=== PATIENT | female | born 1945 | race Caucasian/White ===

== ENCOUNTER → 2017-06-21 | Outpatient (CLI) | payer OTHER | LOC: RAD 07:36 → SPEECH 13:37 → RAD 13:37 | DX: K21.9 Gastro-esophageal reflux disease without esophagitis (principal); R13.12 Dysphagia, oropharyngeal phase ==

== ENCOUNTER → 2017-06-22 | Outpatient (CLI) | payer OTHER | LOC: RAD 09:40 | DX: K21.9 Gastro-esophageal reflux disease without esophagitis (principal) ==

== ENCOUNTER → 2017-06-25 | Outpatient (CLI) | payer OTHER | LOC: CAT | DX: J44.9 Chronic obstructive pulmonary disease, unspecified (principal); I51.7 Cardiomegaly; K21.9 Gastro-esophageal reflux disease without esophagitis ==

== ENCOUNTER → 2018-05-12 | Outpatient (CLI) | payer OTHER ==
[~2018-05-12] VITALS: Ht 167.6 cm; Wt 85.3 kg
[~2018-05-12] MED LIST: MAGNESIUM500 MG PO; POTASSIUM GLUC500 MG PO; TRAMADOL 50 MG50 MG PO; TURMERIC500 M2 PO; VITAMIN D50000 UNIT PO; VITAMINC500 PO
--- NOTE | 2018-05-13 17:49 | P ---
[facility] [place] [address] PROCEDURE REPORT Name: SHARIF ALEJANDRA Room #: REG [facility].#: [id number] Admission: 05/12/18 Attend Phys: Robert Egan MD Discharge: Date of : 49 Report #: [id number] THIS REPORT FOR: //name// CC: Robert Hernandez MD BRIEF HISTORY: The patient is a 72-year-old woman with recurrent solid food dysphagia. She also has intermittent bouts of right upper quadrant pain. There is also prior history of peptic ulcer disease. One or two years ago, she was negative for H. pylori. PREOPERATIVE DIAGNOSES: Dysphagia and abdominal pain and history of ulcer disease. POSTOPERATIVE DIAGNOSES: 1. Antral gastritis with a single small antral erosion. 2. Dysphagia. MEDICATIONS: Deep sedation with propofol per anesthesia. SPECIMEN: None. ESTIMATED BLOOD LOSS: None. PROCEDURE: EGD and Brooke dilation. FINDINGS: Prior to propofol sedation, procedure of upper endoscopy and dilation was reviewed with the patient as well as potential risks and its complications. She indicates she understands and desires to proceed. DESCRIPTION OF PROCEDURE: With the patient in the left lateral decubitus position, the Olympus video endoscope was inserted in the cervical esophagus under direct vision without difficulty. Examination of this organ through its entire length revealed normal esophageal mucosa down the squamocolumnar junction. Squamocolumnar junction was inspected and noted to be unremarkable. No evidence of ulcers, erosions or Garcia mucosa. A stricture was not seen. A significant hiatus hernia was not seen. The scope was advanced in the stomach, was examined on end view as well as retroflexed views. She does have prepyloric antral gastritis and a single nonbleeding erosion was seen. No ulcers were seen. Upon retroflexion, the mucosa in the proximal stomach was unremarkable. No masses were seen in the cardia. The pylorus was normal. Duodenal bulb was normal and the post-coronary sweep was normal. At that point, the scope was slowly withdrawn and careful circumferential views confirmed the above findings. The patient tolerated the procedure well. Following procedure, she was dilated with passage of a 50-[place] [facility] [address] [place] [address] PROCEDURE REPORT Name: SHARIF ALEJANDRA Room #: REG [facility].R.#: [id number] Admission: 05/12/18 Attend Phys: Robert Egan MD Discharge: Date of : 49 Report #: [id number] dilator. The dilator passed without difficulty. The patient tolerated the procedure well. CONDITION OF THE PATIENT UPON DISCHARGE: Following procedure, the patient was drowsy and arousable. She will be discharged home when fully ambulatory. INSTRUCTIONS TO THE PATIENT AND FAMILY AT THE TIME OF DISCHARGE: She has had benefit from dilation in the past and dilation can be repeated on an as needed basis as long as she maintains benefit. If dysphagia continues to be a problem, further evaluation such as motility studies either a barium or manometric may be indicated. She does have intermittent bouts of right upper quadrant pain. Recent ultrasound did reveal dilated ducts, but liver function studies were unremarkable. The patient is to have an MRCP and potentially, PIPIDA scan as well. We will have the patient return for followup in the office. <ELECTRONICALLY SIGNED> By: Robert Egan MD 05/13/18 1749 [id number] [id number] Robert Egan MD /nt
== END | disposition home or self-care (01) ==
LOC: GI 06:14
DX: K29.60 Other gastritis without bleeding (principal); K21.9 Gastro-esophageal reflux disease without esophagitis; E78.00 Pure hypercholesterolemia, unspecified; Z87.19 Personal history of other diseases of the digestive system; Z87.891 Personal history of nicotine dependence; Z98.890 Other specified postprocedural states; Z90.710 Acquired absence of both cervix and uterus; Z79.899 Other long term (current) drug therapy
CPT/HCPCS: 62110; 62900

== ENCOUNTER → 2018-05-24 | Outpatient (CLI) | payer OTHER | LOC: MRI 06:54 | DX: K83.1 Obstruction of bile duct (principal); K82.8 Other specified diseases of gallbladder ==

== ENCOUNTER → 2018-06-06 | Outpatient (CLI) | payer OTHER | LOC: NUC 08:42 | DX: R94.5 Abnormal results of liver function studies (principal); R93.5 Abnormal findings on diagnostic imaging of other abdominal regions, including retroperitoneum; R10.9 Unspecified abdominal pain ==

== ENCOUNTER → 2018-07-12 | Outpatient (CLI) | payer OTHER | LOC: CAT 15:04 | DX: Z13.6 Encounter for screening for cardiovascular disorders (principal); E78.00 Pure hypercholesterolemia, unspecified; I25.10 Atherosclerotic heart disease of native coronary artery without angina pectoris ==

== ENCOUNTER → 2018-10-21 | Outpatient (CLI) | payer OTHER ==
[~2018-10-21] VITALS: Ht 165.1 cm; Wt 86.2 kg
[~2018-10-21] MED LIST changes: +CRESTOR10 MG PO; +EDARBI40 MG PO
--- NOTE | ~2018-10-21 | P ---
[facility] [place] [address] PROCEDURE REPORT Name: SHARIF ALEJANDRA Room #: REG [facility]#: [id number] Admission: 10/21/18 ������������������ Attend Phys: Robert Egan MD Discharge: ������������������ Date of : 49 Report #: [id number] THIS REPORT FOR: //name// CC: Robert Hernandez MD DATE OF SERVICE: 10/21/2018 OUTPATIENT UPPER ENDOSCOPY REPORT BRIEF HISTORY: The patient is a 72-year-old woman well known to me with problems with dysphagia. She also describes choking episodes. She had previous evaluation more than 10 years ago at [facility]. She has undergone recent evaluation with an esophageal manometry which revealed some incomplete peristalsis with swallows and also upper normal range of relaxation to lower esophageal sphincter, but without definite evidence of achalasia. She presents for repeat endoscopy and dilation. She reports she has had benefit from dilation in the past. PREOPERATIVE DIAGNOSIS: Recurrent dysphagia. POSTOPERATIVE DIAGNOSES: 1. Gastritis with scattered erosions. 2. Dysphagia. MEDICATIONS: Deep sedation with propofol for anesthesia. SPECIMEN: Biopsies of gastritis. ESTIMATED BLOOD LOSS: 3 mL. PROCEDURE: EGD with biopsy, Brooke dilation. FINDINGS: Prior to propofol sedation, procedure of upper endoscopy and dilation was discussed with the patient as well as potential risks and its complications. She indicates she understands and desires to proceed. DESCRIPTION OF PROCEDURE: With the patient in left lateral decubitus position, the Olympus video endoscope was inserted in cervical esophagus under direct vision without difficulty. Examination of this organ through its entire length revealed normal esophageal mucosa throughout the entire esophagus. No strictures or masses were seen. The squamocolumnar junction was inspected and noted to be normal. A hiatus hernia was not seen. I did not see a definite stricture or ring. The scope passed easily through the GE junction into the stomach. Examination of the stomach on end view as well as retroflexed views [facility] [address] [place] [address] PROCEDURE REPORT Name: SHARIF ALEJANDRA Room #: [facility].#: [id number] Admission: 10/21/18 ������������������ Attend Phys: Robert Egan MD Discharge: ������������������ Date of : 49 Report #: [id number] revealed intact mucosa. In the body, there were linear striations consistent with gastritis without ulcers or erosions. Upon retroflexion, no mass lesions were seen in the cardia. Examination of the antrum revealed scattered erosions. There is no evidence of bleeding, ulcers or mass lesions. The pylorus was widely patent. The duodenal bulb and postbulbar duodenal sweep was noted to be unremarkable. I could not clearly see the papilla today. She does have a history of dilated bile ducts. There is no endoscopic evidence of mass lesions in the second portion of duodenum on examination today. At that point, the scope was slowly withdrawn and careful circumferential views confirmed the above findings. The patient tolerated the procedure well. Following procedure, she was dilated with passage of a 60-[place] Brooke dilator. There was no resistance to passage of the dilator. The patient tolerated the procedure well. CONDITION OF THE PATIENT UPON DISCHARGE: Following procedure, the patient drowsy. She will be discharged home when fully ambulatory. INSTRUCTIONS TO THE PATIENT AND FAMILY AT THE TIME OF DISCHARGE: We will have the patient return to see me in followup in the office. If she has good benefit from this procedure, may be repeated on an as needed basis. She does describe some choking with swallowing and will also have her obtain a video swallow for further evaluation of these choking episodes. It is noted the patient was told in the past she had a mass in the left supraclavicular area. None is palpable on exam today. She did have a CT of the chest done here at [facility] in 06/2017. That study revealed a prominent left lobe of the thyroid, but not a definite mass. We will discuss further with the patient. I presume this was evaluated previously but if not, further evaluation of the thyroid may be indicated. If she continues to have dysphagia and particularly if she does not respond to esophageal dilation as noted, we may consider a trial of Botox for possible early achalasia, although definite achalasia has not been identified. ��������������������������������������������� ���������������������������������������� By: ��������������������������������������������� 0900 1057 Robert Egan MD /nt
--- NOTE | 2018-10-24 16:06 | PATH ---
[facility] [address] [place] [address] PATHOLOGY RPT PROCEDURE Name: YI ALEJANDRA Alexis Room #: REG [facility].#: [id number] ������������������ Admission: 10/21/18 ������������������ Date of : 49 Discharge: Report #: [id number] Path Case #: [id number] [facility] Accession Number: [id number] . 01 Material submitted: . stomach - BX GASTRITIS R/O H PYLORI . 01 Clinical history: . Pre-OP DX: Dysphagia Post-OP DX: Gastritis, dysphagia . 02 Diagnosis: Gastric mucosa, gastritis rule out H. pylori, endoscopic biopsy: - Mild reactive gastropathy. - Negative for intestinal metaplasia or atrophy. - Negative for Helicobacter pylori (properly controlled immunohistochemical stain performed). (IUV:lithographer helper; 10/24/2018) MBR/10/24/2018 . 02 Electronically signed: . Merlyn Shannon MD, Pathologist NPI- [id number] . 01 Gross description: . Received in formalin labeled "Yi Alejandra, BX gastritis, rule out H. pylori," are 6 segments of mora soft tissue measuring 1.5 x 0.9 x 0.2 cm in aggregate dimensions and ranging from 0.2 to 0.4 cm in maximum dimension. The specimen is submitted entirely in cassette A1. (TSD; 10/21/2018) TOB/TOB . 02 Pathologist provided ICD-10: K31.9 . 02 CPT . 570264, F85526 Specimen Comment: A courtesy copy of this report has been sent to Specimen Comment: [phone], . Specimen Comment: Report sent to / DR TAYLOR Performed at: [address] [id number] MD Dante Carbajal MD Phone: [phone] Performed at: [address] [id number] [address] [address] PATHOLOGY RPT PROCEDURE Name: YI ALEJANDRA Room #: REG [facility] [place]#: [id number] ������������������ Admission: 10/21/18 ������������������ Date of : 49 Discharge: Report #: [id number] Path Case #: [id number] MD Merlyn Shannon MD Phone: [phone]
== END | disposition home or self-care (01) ==
LOC: GI 07:05
DX: K31.9 Disease of stomach and duodenum, unspecified (principal); R13.19 Other dysphagia; I10 Essential (primary) hypertension; E78.5 Hyperlipidemia, unspecified; K21.9 Gastro-esophageal reflux disease without esophagitis; Z90.710 Acquired absence of both cervix and uterus; Z87.891 Personal history of nicotine dependence; Z98.890 Other specified postprocedural states; Z79.899 Other long term (current) drug therapy
CPT/HCPCS: 62110; 62900

== ENCOUNTER → 2018-11-02 | Outpatient (CLI) | payer OTHER | LOC: RAD 10:59 → SPEECH 10:59 → RAD 12:57 | DX: R13.19 Other dysphagia (principal) ==

== ENCOUNTER → 2019-05-09 | Outpatient (CLI) | payer OTHER | END | disposition home or self-care (01) | LOC: SJCVCIMAG 11:53 | DX: I25.10 Atherosclerotic heart disease of native coronary artery without angina pectoris (principal); I10 Essential (primary) hypertension; E78.1 Pure hyperglyceridemia; E78.5 Hyperlipidemia, unspecified; Z87.891 Personal history of nicotine dependence ==

== ENCOUNTER → 2020-01-24 | Outpatient (CLI) | payer OTHER | LOC: SJCVC 14:26 | PROVIDERS: ATTEND Internal Medicine Cardiovascular Disease | DX: I25.10 Atherosclerotic heart disease of native coronary artery without angina pectoris (principal); I10 Essential (primary) hypertension; I77.3 Arterial fibromuscular dysplasia; E78.00 Pure hypercholesterolemia, unspecified; Z79.899 Other long term (current) drug therapy; Z87.891 Personal history of nicotine dependence ==

== ENCOUNTER → 2020-01-31 | Outpatient (CLI) | payer OTHER | LOC: SJCVCIMAG 07:28 | PROVIDERS: ATTEND Internal Medicine Cardiovascular Disease | DX: I87.2 Venous insufficiency (chronic) (peripheral) (principal); Z87.891 Personal history of nicotine dependence ==

== ENCOUNTER → 2020-02-20 | Outpatient (CLI) | payer OTHER | LOC: SJCVC 09:39 | PROVIDERS: ATTEND Nuclear Medicine Nuclear Cardiology | DX: I87.2 Venous insufficiency (chronic) (peripheral) (principal); M79.89 Other specified soft tissue disorders; I10 Essential (primary) hypertension; I77.3 Arterial fibromuscular dysplasia; E78.1 Pure hyperglyceridemia; Z79.899 Other long term (current) drug therapy; Z87.891 Personal history of nicotine dependence ==

== ENCOUNTER → 2020-08-08 | Outpatient (CLI) | payer OTHER ==
[~2020-08-08] VITALS: Ht 167.6 cm; Wt 86.4 kg
[~2020-08-08] MED LIST changes: +AZELASTIN-FLUTI23 GM NASAL; +PROBIOTIC1 EAC7 PO
[2020-08-08 13:26] VITALS: BP 155/79
== END | disposition home or self-care (01) ==
LOC: CATH 12:17
PROVIDERS: ATTEND Nuclear Medicine Nuclear Cardiology
DX: I87.1 Compression of vein (principal); I87.323 Chronic venous hypertension (idiopathic) with inflammation of bilateral lower extremity; M79.605 Pain in left leg; M79.604 Pain in right leg; R22.43 Localized swelling, mass and lump, lower limb, bilateral; I10 Essential (primary) hypertension; E78.5 Hyperlipidemia, unspecified; K21.9 Gastro-esophageal reflux disease without esophagitis; Z98.890 Other specified postprocedural states; Z79.899 Other long term (current) drug therapy; Z90.710 Acquired absence of both cervix and uterus; Z87.891 Personal history of nicotine dependence

== ENCOUNTER 2020-08-09 06:13 | Emergency (ER) | payer OTHER ==
[~2020-08-09] VITALS: Ht 167.6 cm; Wt 86.2 kg
[2020-08-09 07:48] VITALS: BP 150/70
== END 2020-08-09 07:48 | disposition home or self-care (01) ==
LOC: ER 06:13
DX: S11.83XA Puncture wound without foreign body of other specified part of neck, initial encounter (principal); L76.22 Postprocedural hemorrhage of skin and subcutaneous tissue following other procedure; I10 Essential (primary) hypertension; E78.5 Hyperlipidemia, unspecified; K21.9 Gastro-esophageal reflux disease without esophagitis; Z98.890 Other specified postprocedural states; Z79.899 Other long term (current) drug therapy; X58.XXXA Exposure to other specified factors, initial encounter; Y93.89 Activity, other specified; Y92.89 Other specified places as the place of occurrence of the external cause; Y99.9 Unspecified external cause status

== ENCOUNTER → 2020-10-30 | Outpatient (CLI) | payer OTHER | LOC: SJCVC 10:49 → SJCVCIMAG 10:49 | PROVIDERS: ATTEND Internal Medicine Cardiovascular Disease | DX: R94.31 Abnormal electrocardiogram [ECG] [EKG] (principal); I10 Essential (primary) hypertension; N28.89 Other specified disorders of kidney and ureter; I49.3 Ventricular premature depolarization; I25.10 Atherosclerotic heart disease of native coronary artery without angina pectoris; I77.3 Arterial fibromuscular dysplasia; Z79.899 Other long term (current) drug therapy; Z90.49 Acquired absence of other specified parts of digestive tract; Z90.710 Acquired absence of both cervix and uterus; E78.00 Pure hypercholesterolemia, unspecified; Z87.891 Personal history of nicotine dependence ==

== ENCOUNTER → 2020-11-01 | Outpatient (CLI) | payer OTHER ==
[2020-11-01 09:08] LABS: CREATININE 0.8 mg/dL (0.6-1.0)
== END ==
LOC: CAT 08:10
PROVIDERS: ATTEND Internal Medicine Cardiovascular Disease
DX: N28.1 Cyst of kidney, acquired (principal); I15.0 Renovascular hypertension; Z01.812 Encounter for preprocedural laboratory examination; I70.1 Atherosclerosis of renal artery; N28.89 Other specified disorders of kidney and ureter; Z95.820 Peripheral vascular angioplasty status with implants and grafts

== ENCOUNTER → 2020-12-23 | Outpatient (CLI) | payer OTHER | LOC: SJCVCIMAG 08:16 | PROVIDERS: ATTEND Nuclear Medicine Nuclear Cardiology | DX: I70.201 Unspecified atherosclerosis of native arteries of extremities, right leg (principal); I87.2 Venous insufficiency (chronic) (peripheral); I87.1 Compression of vein; I77.3 Arterial fibromuscular dysplasia; I10 Essential (primary) hypertension; M79.89 Other specified soft tissue disorders; R49.0 Dysphonia; J44.9 Chronic obstructive pulmonary disease, unspecified; Z86.16 Personal history of COVID-19; Z87.891 Personal history of nicotine dependence; Z72.89 Other problems related to lifestyle; Z79.899 Other long term (current) drug therapy; Z95.820 Peripheral vascular angioplasty status with implants and grafts ==